=== PATIENT | male | born 1980 | race Caucasian/White ===

== ENCOUNTER 2025-04-30 13:37 | Outpatient (REF) | payer MEDICAID, SELFPAY ==
[2025-04-30 16:09] LABS: MANUAL DIFF FLAG NO
[2025-04-30 16:19] LABS: Hematocrit 40.0 % (42.0-52.0); Hemoglobin 12.4 g/dl (14.0-18.0); Imm Gran Abs Auto 0.05 X10*3/uL (0.00-0.03); Imm Gran Pct Auto 0.6 % (0.0-0.4); Lymphocytes Absolute Auto 2.4 X10*3/uL (1.2-4.9); Mean Corpuscular HGB Conc 31.0 g/dl (31.0-36.0); Mean Corpuscular Hemoglobin 24.9 pg (27.0-33.0); Mean Corpuscular Volume 80.3 fL (80.0-98.0); NRBC Abs Auto 0.000 X10*3/uL (0.0-0.012); NRBC Pct Auto 0.0 /100WBC (0.0-0.2); Platelet Count 335 X10*3/uL (160-400); Red Blood Count 4.98 X10*6/uL (4.60-5.80); White Blood Count 8.0 X10*3/uL (4.8-10.8)
[2025-04-30 16:38] LABS: Alanine Aminotransferase 23 U/L (0-40); Albumin Level 4.6 g/dL (3.5-5.0); Alkaline Phosphatase 54 U/L (39-117); Anion Gap 11 (12-20); Aspartate Amino Transferase 30 U/L (5-37); Blood Urea Nitrogen 17 mg/dL (9-16); Calcium 9.1 mg/dL (8.4-10.2); Carbon Dioxide 25 mmol/L (22-29); Chloride 105 mmol/L (96-108); Estimated Glomerular Filt Rate > 60; Potassium 4.3 mmol/L (3.3-5.1); Sodium 137 mmol/L (135-145); Total Protein 7.5 g/dL (6.5-8.0)
== END 2025-04-30 13:38 | disposition home or self-care (01) ==
LOC: HO.HHCL 13:37
PROVIDERS: PCP Internal Medicine; Visit Provider Internal Medicine
DX: K21.9 Gastro-esophageal reflux disease without esophagitis (principal)
CPT/HCPCS: 36415; 80053; 85025

== ENCOUNTER 2025-05-01 08:00 | Outpatient (REF) | payer MEDICAID, SELFPAY ==
--- OUTSIDE RECORDS SUMMARY | 2025-04-30 13:00 | XMS_ITS | Encounter Summary ---
Author Organization [employer] Address [address] [facility] [address] [place] [address] Care Team Providers Care Partner Management Consultant Name Role Phone Unavailable Primary Care Provider Unavailabl e Encounter Details Date Type Department Care Team (Latest Contact Info) Description 04/30/2025 1:00 PM EST Office Visit [facility] [address] [place] [address] [phone] Connie Fulton MD [address] [place], [place] [phone] Gastroesophageal reflux disease, unspecified whether esophagitis present (Primary Dx); Chest discomfort; Family history of diabetes mellitus Social History Tobacco Use Types Packs/Day Years Used Date Smoking Tobacco: Never Assessed Sex and Gender Information Value Date Recorded Sex Assigned at Male 04/30/2025 11:40 AM EST Legal Sex Unknown 04/30/2025 11:25 AM EST Gender Identity Male 04/30/2025 11:40 AM EST Sexual Orientation Straight 04/30/2025 11 :40 AM EST documented as of this encounter Last Filed Vital Signs Vital Sign Reading Time Taken Comments Blood Pressure 131/87 04/30/2025 12:21 PM EST Pulse 82 04/30/2025 12:21 PM EST Temperature 36.7 C (98.1 F) 04/30/2025 12:21 PM EST Respiratory Rate 16 04/30/2025 12:2 1 PM EST Oxygen Saturation 98% 04/30/2025 12: 21 PM EST room air Inhaled Oxygen Concentration - - Weight 77.5 kg (170 lb 12.8 oz) 025 12:21 PM EST Height 170.2 cm (5' 7 ) 04/30/2025 12:2 1 PM EST Body Mass Index 26.75 04/30/2025 12:21 PM EST documented in this encounter Progress Notes * Connie Fulton MD - 04/30/2025 1:00 PM EST SUBJECTIVE: Leonardo Miller is a 44 y.o. year old adult who presents for MANAGEMENT SUPERVISOR/CP. Denies recent illness, injury, or hospitalization. Interview done with belgian site interpreter Talib provided by [employer] phone service ID # [id number] Patient wants establish PCP, today with episode of retrosternal chest pain and heartburn. PMH Negative HTN, HLD, CAD, aspirin, seizures. PSH ? Lithotripsy more than 5 years ago PFH Mother has HTN, uncles have DM. Acute Concerns: Chest Pain and Heartburn For the past 3 months, has experienced chest pain and frequent heartburn, especially after eating. Symptoms begin immediately after meals and are accompanied by persistent burping. Burping is severe enough to interfere with sleep, sometimes remaining awake until 3:00 or 4:00 AM. No specific food tri ggers identified; symptoms occur after any meal. Denies blood in stools and diarrhea. Social History Social History Narrative Not on file Problem List[1] Family History[2] Review of Systems Constitutional: Negative for chills, fatigue and fever. HENT: Negative for congestion, ear pain, nosebleeds, rhinorrhea, sinus pressure, sore throat and trouble swallowing. Eyes: Negative for pain and discharge. Respiratory: Negative for cough, chest tightness and shortness of breath. Cardiovascular: Positive for chest pain. Negative for palpitations and leg swelling. Gastrointestinal: Positive for abdominal distention, abdominal pain and nausea. Negative for blood in stool, constipation and diarrhea. Endocrine: Negative for polydipsia and polyuria. Genitourinary: Negative for dysuria, frequency, genital sores, pelvic pain and vaginal discharge. Musculoskeletal: Negative for back pain and neck pain. Skin: Negative for rash. Allergic/Immunologic: Negative for environmental allergies. Neurological: Negative for dizziness, seizures, weakness, light-headedness and headaches. Hematological: Negative for adenopathy. Psychiatric/Behavioral: Negative for agitation, behavioral problems, self-injury and suicidal ideas. OBJECTIVE: Vitals: 04/30/25 1221 BP: 131/87 Pulse: 82 Resp: 16 Temp: 98.1 ??F (36.7 ??C) SpO2: 98% Physical Exam Constitutional: Appearance: Normal appearance. HENT: Right Ear: Tympanic membrane and ear canal normal. Left Ear: Tympanic membrane and ear canal normal. Mouth/Throat: Mouth: Mucous membranes are moist. Pharynx: No oropharyngeal exudate or posterior oropharyngeal erythema. Eyes: Pupils: Pupils are equal, round, and reactive to light. Cardiovascular: Rate and Rhythm: Normal rate and regular rhythm. Heart sounds: No murmur heard. Pulmonary: Breath sounds: Normal breath sounds. No wheezing. Abdominal: General: Bowel sounds are normal. Palpations: Abdomen is soft. Tenderness: There is no abdominal tenderness. Musculoskeletal: General: No tenderness. Normal range of motion. Cervical back: Normal range of motion. No tenderness. Skin: General: Skin is warm. Neurological: General: No focal deficit present. Mental Status: He is alert and oriented to person, place, and time. Psychiatric: Mood and Affect: Mood normal. Encounter Date: 04/30/25 ECG 12 lead Narrative NSR@60bpm, normal axis. No ST/T abn or ischemic changes Problem List Items Addressed This Visit Gastroesophageal reflux disease - Primary - Prescribed omeprazole to be taken on an empty stomach every morning for one month. - Advised to obtain labs (Sam) prior to starting PPI . - Will arrange follow-up appointment with new primary care provider for ongoing evaluation and management. Relevant Medications omeprazole OTC (PriLOSEC OTC) 20 MG EC tablet Other Relevant Orders Helicobacter pylori Antigen, EIA, Stool CBC auto differential (Completed) Comprehensive Metabolic Panel (Completed) Chest discomfort - Chest discomfort evaluated; has atypical CP on normal EKG and normal blood pressure. No evidence of diabetes. - Continue monitoring symptoms and POC as above. Follow-up with primary care provider recommended for further evaluation if symptoms persist or worsen. Relevant Orders ECG 12 lead (Completed) Other Visit Diagnoses Family history of diabetes mellitus Relevant Orders POCT Glucose (Completed) POCT Hgb A1c (Completed) This note was drafted using Ambient (AI) technology. The patient/patient's guardian has been informed and has consented to the use of this technology: Yes Follow Up: Medications Ordered Prior to Encounter[3] [1] Patient Active Problem List Diagnosis Gastroesophageal reflux disease Chest discomfort [2] No family history on file. [3] No current outpatient medications on file prior to visit. No current facility-administered medications on file prior to visit. documented in this encounter Miscellaneous Notes * Assessment & Plan Note - Connie Fulton MD - 04/30/2025 5:26 PM EST Associated Problem(s): Chest discomfort - Chest discomfort evaluated; has atypical CP on normal EKG and normal blood pressure. No evidence of diabetes. - Continue monitoring symptoms and POC as above. Follow-up with primary care provider recommended for further evaluation if symptoms persist or worsen. * Assessment & Plan Note - Connie Fulton MD - 04/30/2025 5:25 PM EST Associated Problem(s): Gastroesophageal reflux disease - Prescribed omeprazole to be taken on an empty stomach every morning for one month. - Advised to obtain labs (Sam) prior to starting PPI . - Will arrange follow-up appointment with new primary care provider for ongoing evaluation and management. documented in this encounter Plan of Treatment Not on file documented as of this encounter Procedures Procedure Name Priority Date/Time Associated Diagnosis Comments HELICOBACTER PYLORI AG, EIA, STOOL Routine 05/01/2025 8:00 AM EST Gastroesophageal reflux disease, unspecified whether esophagitis present CBC WITH AUTO DIFFERENTIAL Routine 04/30/2025 1:48 PM EST Gastroesophageal reflux disease, unspecified whether esophagitis present COMPREHENSIVE METABOLIC PANEL Routine 04/30/2025 1:48 PM EST Gastroesophageal reflux disease, unspecified whether esophagitis present POCT GLUCOSE Routine 04/30/2025 1:17 PM EST Family history of diabetes mellitus POCT GLYCATED HEMOGLOBIN, TOTAL Routine 04/30/2025 1:16 PM EST Family history of diabetes mellitus ECG 12-LEAD Routine 04/30/2025 1:06 PM EST Chest discomfort documented in this encounter Results * (ABNORMAL) Helicobacter pylori??Antigen, EIA, Stool (05/01/2025 8:00 AM EST) H pylori Ag Stool SEE NOTE(A) [facility] Comment:HELICOBACTER PYLORI AG, EIA, STOOL Micro Number: [id number] Test Status: Final Specimen Source: Stool Specimen Quality: Adequate H.pylori Ag: Detected Reference Range: Not DetectedTHIS TEST WAS PERFORMED AT:[id number] [place] [id number] GENTILE MD Stool Rectal contents / Unknown 05/01/2025 8:00 AM EST 05/01/2025 12:11 PM EST Connie Fulton MD LAB BODY FLUIDS AND STOO LS ORDERABLES Final Result [facility] [address] [place] [phone] * (ABNORMAL) Comprehensive Metabolic Panel (04/30/2025 1:48 PM EST) Sodium 137 135 - 145 mmol/L [facility] Potassium 4.3 3.3 - 5.1 mmol/L [facility] Chloride 105 96 - 108 mmol/L [facility] Carbon Dioxide 25 22 - 29 mmol/L [facility] Anion Gap 11(L) 12 - 20 [facility] Urea Nitrogen (BUN) 17(H) 9 - 16 mg/dL [facility] Creatinine, Serum 1.15 0.5 - 1.4 mg/dL [facility] Estimated Glomerular Filt Rate >60 [facility] Comment:Chronic Kidney Disea se: Estimated GFR < 60 mL/min/[id number] Kidney Disease: Estimated GFR < 15 mL/min/1.73m2 Glucose 83 60 - 115 mg/dL [facility] Calcium 9.1 8.4 - 10.2 mg/dL [facility] Bilirubin, Total 0.3 0.0 - 1.0 mg/dL [facility] Aspartate Amino Transferase 30 5 - 37 U/L [facility] Alanine Aminotransferase 23 0 - 40 U/L [facility] Total Protein 7.5 6.5 - 8.0 g/dL [facility] Albumin Level 4.6 3.5 - 5.0 g/dL [facility] Alkaline Phosphatase 54 39 - 117 U/L [facility] Blood Venous blood specimen / Unknown 04/30/2025 1:48 PM EST 04/30/2025 4:05 PM EST us Connie Fulton MD LAB BLOOD ORDERABLES Fin al Result [facility] [address] [place] [phone] * (ABNORMAL) CBC auto differential (04/30/2025 1:48 PM EST) White Blood Count 8.0 4.8 - 10.8 X10*3/uL [facility] Red Blood Count 4.98 4.60 - 5.80 X10*6/uL [facility] Hemoglobin 12.4(L) 14.0 - 18.0 g/dl [facility] Hematocrit 40.0(L) 42.0 - 52.0 % [facility] Mean Corpuscular Volume 80.3 80.0 - 98.0 fL [facility] Mean Corpuscular Hemoglobin 24.9(L) 27.0 - 33.0 pg [facility] Mean Corpuscular HGB Conc 31.0 31.0 - 36.0 g/dl [facility] Red Cell Distribution Width 13.5 11.0 - 16.0 % [facility] Platelet Count 335 160 - 400 X10*3/uL [facility] Mean Platelet Volume 11.1 9.4 - 12.4 fL [facility] Neutrophils Percent Auto 60.9 45 - 73 % [facility] Imm Gran Pct Auto 0.6(H) 0.0 - 0.4 % [facility] Lymphocytes Percent Auto 29.4 20 - 40 % [facility] Monocytes Percent Auto 7.8 2 - 11 % [facility] Eosinophils Percent Auto 1.1 0 - 4 % [facility] Basophils Percent Auto 0.2 0 - 2 % [facility] NRBC Pct Auto 0.0 0.0 - 0.2 /100WBC [facility] Neutrophils Absolute Auto 4.9 2.0 - 8.3 x10*3/uL [facility] Imm Gran Abs Auto 0.05(H) 0.00 - 0.03 X10*3/uL [facility] Lymphocytes Absolute Auto 2.4 1.2 - 4.9 X10*3/uL [facility] Monocytes Absolute Auto 0.6 0.1 - 1.2 X10*3/uL [facility] Eosinophils Absolute Auto 0.1 0.0 - 0.4 X10*3/uL [facility] Basophils Absolute Auto 0.0 0.0 - 0.2 X10*3/uL [facility] NRBC Abs Auto 0.000 0.0 - 0.012 X10*3/uL [facility] Blood Venous blood specimen / Unknown 04/30/2025 1:48 PM EST 04/30/2025 4:05 PM EST Connie Fulton MD LAB BLOOD ORDERABLES Fin al Result [facility] [address] [place] [phone] * POCT Glucose (04/30/2025 1:17 PM EST) Glucose Blood, POC 87 60 - 200 mg/dL [employer] Lot # [id number] Lot# Expiration Date Blood Capillary blood specimen / Unknown 04/30/2025 1:17 PM EST Connie Fulton MD POINT OF CARE TEST ENTER /EDIT ORDERABLES Final Result * POCT Hgb A1c (04/30/2025 1:16 PM EST) Hemoglobin A1C 5.6 4.0 - 5.7 % [employer] Lot # [id number] Lot# Expiration Date Blood 04/30/2025 1:16 PM EST Connie Fulton MD POINT OF CARE TEST ENTER /EDIT ORDERABLES Final Result * ECG 12 lead (04/30/2025 1:06 PM EST) Narrative Connie Fulton MD - 04/30/2025 1:06 PM EST NSR@60bpm, normal axis. No ST/T abn or ischemic changes us Connie Fulton MD ECG ORDERABLES Final Re sult documented in this encounter Visit Diagnoses Diagnosis Gastroesophageal reflux disease, unspecified whether esophagitis present- Primary Chest discomfort Other chest pain Family history of diabetes mellitus documented in this encounter
--- OUTSIDE RECORDS SUMMARY | 2025-05-04 16:48 | XMS_ITS | Encounter Summary ---
Author Organization [employer] [facility] Address [address] [facility] [address] [place] [address] Care Team Providers Care Doctor Of Audiology Name Role Phone Unavailable Primary Care Provider Unavailabl e Encounter Details Date Type Department Care Team (Latest Contact Info) Description 04/30/2025 Travel Social History Tobacco Use Types Packs/Day Years Used Date Smoking Tobacco: Never Assessed Sex and Gender Information Value Date Recorded Sex Assigned at Male 04/30/2025 11:40 AM EST Legal Sex Unknown 04/30/2025 11:25 AM EST Gender Identity Male 04/30/2025 11:40 AM EST Sexual Orientation Straight 04/30/2025 11 :40 AM EST documented as of this encounter Plan of Treatment Not on file documented as of this encounter Visit Diagnoses Not on filedocumented in this encounter
--- OUTSIDE RECORDS SUMMARY | 2025-05-04 16:48 | XMS_ITS | Clinical Summary ---
Author Organization [employer] Address [address] [facility] 7[address] [place] [address] Care Team Providers Care Reject Opener And Filler Name Role Phone Connie Fulton MD Primary Care Provider + Allergies No known active allergies Medications omeprazole OTC (PriLOSEC OTC) 20 MG EC tablet Take 1 tablet (20 mg) by mouth Once per day. Do not crush, chew, or split. 30 tablet 04/30/2025 6 Active amoxicillin (Amoxil) 500 MG capsule Take 1 capsule (500 mg) by mouth 2 times daily for 14 days. 28 capsule 05/04/2025 5 Active clarithromycin (Biaxin) 500 MG tablet Take 1 tablet (500 mg) by mouth 2 times daily for 14 days. 28 tablet 05/04/2025 5 Active omeprazole OTC (PriLOSEC OTC) 20 MG EC tablet Take 1 tablet (20 mg) by mouth for 14 days, then daily for 30 days more. 58 tablet 05/04/2025 6 Active Active Problems Problem Noted Date Diagnosed Date Helicobacter pylori antibody positive 05/04/2025 Gastroesophageal reflux disease 04/30/2025 Assessment & Plan (04/30/2025 5:25 PM EST): - Prescribed omeprazole to be taken on an empty stomach every morning for one month. - Advised to obtain labs (Sam) prior to starting PPI . - Will arrange follow-up appointment with new primary care provider for ongoing evaluation and management. Chest discomfort 04/30/2025 Assessment & Plan (04/30/2025 5:26 PM EST): - Chest discomfort evaluated; has atypical CP on normal EKG and normal blood pressure. No evidence of diabetes. - Continue monitoring symptoms and POC as above. Follow-up with primary care provider recommended for further evaluation if symptoms persist or worsen. Encounters Date Type Department Care Team Description 05/04/2025 Results Follow-Up [facility] [address] [place] [phone] Connie Fulton MD POCT Glucose, POCT Hgb A1c, Helicobacter pylori Antigen, EIA, Stool, Additional followed-up results: 2 04/30/2025 1:00 PM EST Office Visit [facility] [address] [place] [phone] Connie Fulton MD Gastroesophageal reflux disease, unspecified whether esophagitis present (Primary Dx); Chest discomfort; Family history of diabetes mellitus 04/30/2025 Travel 04/30/2025 Telephone [facility] [address] [place] [phone] Connie Fulton MD Triage from Last 3 Months Social History Tobacco Use Types Packs/Day Years Used Date Smoking Tobacco: Never Assessed Sex and Gender Information Value Date Recorded Sex Assigned at Male 04/30/2025 11:40 AM EST Legal Sex Unknown 04/30/2025 11:25 AM EST Gender Identity Male 04/30/2025 11:40 AM EST Sexual Orientation Straight 04/30/2025 11 :40 AM EST Last Filed Vital Signs Vital Sign Reading [...] Mass Index 26.75 04/30/2025 12:21 PM EST Plan of Treatment Health Maintenance Due Date Last Done Comments CT Colonography 1978 Colonoscopy 1978 Colorectal Cancer Screening 1978 Depression Screening 1978 FIT DNA/Cologuard 1978 FIT 1978 FOBT 1978 HIV Screening 1978 Lipid Panel 1978 SDOH Screening 1978 Sigmoidoscopy 1978 Disability Screening 1978 Alcohol/Substance Use Screening 1990 Tobacco Screening 1990 Family Planning (PISQ) 1993 Hepatitis C Screening 1996 DTaP/Tdap/Td Vaccines (1 - Tdap) 1997 Hepatitis B Vaccines (1 of 3 - 19+ 3-dose series) 1997 COVID-19 Vaccine (1 - 2023-2 5 season) 2025 Influenza Vaccine (#1) 2025 Zoster Vaccines (1 of 2) 2028 RSV Patients and Pa tients Aged 60 years or older (1 - 1-dose 75+ series) 2053 HIB Vaccines Aged Out No longer eligi ble based on patient's age to complete this topic HPV Vaccines Aged Out No longer eligi ble based on patient's age to complete this topic Hepatitis A Vaccines Aged Out No long er eligible based on patient's age to complete this topic IPV Vaccines Aged Out No longer eligi ble based on patient's age to complete this topic Meningococcal B Vaccine Aged Out No l onger eligible based on patient's age to complete this topic Meningococcal Vaccine Aged Out No bruce jayce eligible based on patient's age to complete this topic Pneumococcal Vaccine: Pediat rics (0 to 5 Years) and At-Risk Patients (6 to 49) Years Aged Out No longer eligible b ased on patient's age to complete this topic RSV under 20 months Aged Out No longe r eligible based on patient's age to complete this topic Rotavirus Vaccines Aged Out No longer eligible based on patient's age to complete this topic Procedures Procedure Name Priority Date/Time Associated Diagnosis [...] Routine 04/30/2025 1:06 PM EST Chest discomfort from Last 3 Months Results * (ABNORMAL) Helicobacter pylori??Antigen, EIA, Stool (05/01/2025 8:00 AM EST) H pylori Ag Stool SEE NOTE(A) [facility] Comment:HELICOBACTER PYLORI AG, EIA, STOOL Micro Number: [id number] Test Status: Final Specimen Source: Stool Specimen Quality: Adequate H.pylori Ag: Detected Reference Range: Not DetectedTHIS TEST WAS PERFORMED AT:[facility] [address] [id number] GENTILE MD Stool Rectal contents / Unknown 05/01/2025 8:00 AM EST 05/01/2025 12:11 PM EST us Connie Fulton MD LAB BODY FLUIDS AND STOO LS ORDERABLES Final Result [facility] [address] [place] [address] [phone] * (ABNORMAL) CBC auto differential (04/30/2025 1:48 PM EST) White Blood Count 8.0 4.8 - 10.8 X10*3/uL [facility] Red Blood Count 4.98 4.60 - 5.80 X10*6/uL [facility] Hemoglobin 12.4(L) 14.0 - 18.0 g/dl [facility] Hematocrit 40.0(L) 42.0 - 52.0 % [facility] Mean Corpuscular Volume 80.3 80.0 - 98.0 fL [facility] Mean Corpuscular Hemoglobin 24.9(L) 27.0 - 33.0 pg [facility] Mean Corpuscular HGB Conc 31.0 31.0 - 36.0 g/dl [facility] Red Cell Distribution Width 13.5 11.0 - 16.0 % [facility] Platelet Count 335 160 - 400 X10*3/uL [facility] Mean Platelet Volume 11.1 9.4 - 12.4 fL [facility] Neutrophils Percent Auto 60.9 45 - 73 % [facility] Imm Gran Pct Auto 0.6(H) 0.0 - 0.4 % [facility] Lymphocytes Percent Auto 29.4 20 - 40 % [facility] Monocytes Percent Auto 7.8 2 - 11 % [facility] Eosinophils Percent Auto 1.1 0 - 4 % [facility] Basophils Percent Auto 0.2 0 - 2 % [facility] NRBC Pct Auto 0.0 0.0 - 0.2 /100WBC [facility] Neutrophils Absolute Auto 4.9 2.0 - 8.3 x10*3/uL [facility] Imm Gran Abs Auto 0.05(H) 0.00 - 0.03 X10*3/uL [facility] Lymphocytes Absolute Auto 2.4 1.2 - 4.9 X10*3/uL [facility] Monocytes Absolute Auto 0.6 0.1 - 1.2 X10*3/uL [facility] Eosinophils Absolute Auto 0.1 0.0 - 0.4 X10*3/uL [facility] Basophils Absolute Auto 0.0 0.0 - 0.2 X10*3/uL [facility] NRBC Abs Auto 0.000 0.0 - 0.012 X10*3/uL [facility] Blood Venous blood specimen / Unknown 04/30/2025 1:48 PM EST 04/30/2025 4:05 PM EST us Connie Fulton MD LAB BLOOD ORDERABLES Fin al Result Performing Organization Address City/[facility]/ZIP Co de Phone Number [facility] [address] [place] [address] [phone] * (ABNORMAL) Comprehensive Metabolic Panel (04/30/2025 1:48 PM EST) Sodium 137 135 - 145 mmol/L [facility] Potassium 4.3 3.3 - 5.1 mmol/L [facility] Chloride 105 96 - 108 mmol/L [facility] Carbon Dioxide 25 22 - 29 mmol/L [facility] Anion Gap 11(L) 12 - 20 [facility] Urea Nitrogen (BUN) 17(H) 9 - 16 mg/dL [facility] Creatinine, Serum 1.15 0.5 - 1.4 mg/dL [facility] Estimated Glomerular Filt Rate >60 [facility] Comment:Chronic Kidney Disea se: Estimated GFR < 60 mL/min/[id number] Kidney Disease: Estimated GFR < 15 mL/min/1.73m2 Glucose 83 60 - 115 mg/dL [facility] Calcium 9.1 8.4 - 10.2 mg/dL [facility] Bilirubin, Total 0.3 0.0 - 1.0 mg/dL [facility] Aspartate Amino Transferase 30 5 - 37 U/L [facility] Alanine Aminotransferase 23 0 - 40 U/L [facility] Total Protein 7.5 6.5 - 8.0 g/dL [facility] Albumin Level 4.6 3.5 - 5.0 g/dL [facility] Alkaline Phosphatase 54 39 - 117 U/L [facility] Blood Venous blood specimen / Unknown 04/30/2025 1:48 PM EST 04/30/2025 4:05 PM EST us Connie Fulton MD LAB BLOOD ORDERABLES Fin al Result Performing Organization Address City/[facility]/ZIP Co de Phone Number [facility] [address] [place] [address] [phone] * POCT Glucose (04/30/2025 1:17 PM EST) Glucose Blood, POC 87 60 - 200 mg/dL QC Media Lot # [id number] Lot# Expiration Date Blood Capillary blood specimen / Unknown 04/30/2025 1:17 PM EST us Connie Fulton MD POINT OF CARE TEST ENTER /EDIT ORDERABLES Final Result * POCT Hgb A1c (04/30/2025 1:16 PM EST) Hemoglobin A1C 5.6 4.0 - 5.7 % QC Media Lot # [id number] Lot# Expiration Date Blood 04/30/2025 1:16 PM EST us Connie Fulton MD POINT OF CARE TEST ENTER /EDIT ORDERABLES Final Result * ECG 12 lead (04/30/2025 1:06 PM EST) Narrative Connie Fulton MD - 04/30/2025 1:06 PM EST NSR@60bpm, normal axis. No ST/T abn or ischemic changes us Connie Fulton MD ECG ORDERABLES Final Re sult from Last 3 Months Insurance [employer] [facility] Care Teams Reject Opener And Filler Relationship Specialty Start Date End Date Connie Fulton MD [address] [place] [phone] PCP - General Internal Medicine 05/02/25
--- OUTSIDE RECORDS SUMMARY | 2025-05-04 16:48 | XMS_ITS | Encounter Summary ---
Author Organization [employer] Address [address] [facility] 7t [place] [address] Care Team Providers Care Child Care Attendant Name Role Phone Connie Fulton MD Primary Care Provider + Encounter Details Date Type Department Care Team (Latest Contact Info) Description 05/04/2025 Results Follow-Up [facility] [address] [place], [place] [phone] Connie Fulton MD [address] [place], [place] [phone] POCT Glucose, POCT Hgb A1c, Helicobacter pylori Antigen, EIA, Stool, Additional followed-up results: 2 Social History Tobacco Use Types Packs/Day Years Used Date Smoking Tobacco: Never Assessed Sex and Gender Information Value Date Recorded Sex Assigned at Male 04/30/2025 11:40 AM EST Legal Sex Unknown 04/30/2025 11:25 AM EST Gender Identity Male 04/30/2025 11:40 AM EST Sexual Orientation Straight 04/30/2025 11 :40 AM EST documented as of this encounter Miscellaneous Notes * Result Encounter Note - Connie Fulton MD - 05/04/2025 4:22 PM EST Labs on 04/30/2025 show mild normocytic anemia and H. pylori antibodies. Please tell patient that heneeds treatment for H. pylori which is a bacteria usually present in the stomach for some time thatis probably the culprit for his symptoms. Tell him to take medication for 14 days then continue omeprazole to complete 30 more days. I will follow-up on anemia next month and if it continues we will do further workup, sometimes irritation of the stomach can produce small bleedings that can cause anemia. Please tell him to go to ED if he develops vomiting with blood or coffee grounds or episodes of melena, otherwise I will follow-up with him as scheduled documented in this encounter Plan of Treatment Not on file documented as of this encounter Visit Diagnoses Diagnosis Helicobacter pylori antibody positive- Primary Other and unspecified nonspecific immunological findings documented in this encounter Care Teams Child Care Attendant Relationship Specialty Start Date End Date Connie Fulton MD [address] [place] [phone] PCP - General Internal Medicine 05/02/25 documented as of this encounter
--- OUTSIDE RECORDS SUMMARY | 2025-05-04 16:48 | XMS_ITS | Encounter Summary ---
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 Role Phone Unavailable Primary Care Provider Unavailabl e Reason for Visit * Reason Onset Date Comments Triage 04/30/2025 Encounter Details Date Type Department Care Team (Late st Contact Info) Description 04/30/2025 Telephone [facility] [address] [place], [place] [phone] Connie Fulton MD [address] [place], [place] [phone] Triage Social History Tobacco Use Types Packs/Day Years Used Date Smoking Tobacco: Never Assessed Sex and Gender Information Value Date Recorded Sex Assigned at Male 04/30/2025 11:40 AM EST Legal Sex Unknown 04/30/2025 11:25 AM EST Gender Identity Male 04/30/2025 11:40 AM EST Sexual Orientation Straight 04/30/2025 11 :40 AM EST documented as of this encounter Miscellaneous Notes * Telephone Encounter - Roxanne Lieberman RN - 04/30/2025 11:38 AM EST Assessment: Patient presents to [facility] c/o chest pain, denies any shortness of breath, reports frequent headaches, acute pain if left ear Symptoms have been present for 3 months. Symptoms are intermittent Symptoms worsen after eating strong pain, worse when laying down as well Symptoms are relieved by drinking old mild. Patient is taking omeprazole stopped one month ago, takes APAP . Recent ED visit or hospitalization: No. VS as follows (if applicable): Temp 98.2 orally HR 82 Resp 16 none BP 131/87 left Arm; Device: Automatic Cuff Size: regular O2 sat 98 % on room air Pain level: 8, Location: left sided chest pain Hgt 5' 7 Wgt 170.8 lb EKG obtianed Allergies[1] Current Medications[2] There are no active problems to display for this patient. Plan of care: Report to Dr Fulton Provider evaluation: Yes Patient to return to waiting room to await Provider evaluation in the order of arrival Roxanne Lieberman RN [1] Not on File [2] No current outpatient medications on file. No current facility-administered medications for this visit. documented in this encounter Plan of Treatment Not on file documented as of this encounter Visit Diagnoses Not on filedocumented in this encounter
== END 2025-05-01 08:01 | disposition home or self-care (01) ==
LOC: HO.HHCL 08:00
PROVIDERS: Visit Provider Internal Medicine
DX: Z11.0 Encounter for screening for intestinal infectious diseases (principal)
CPT/HCPCS: 87338